=== PATIENT | female | born 2000 | race American Indian/Alaskan Native ===

== ENCOUNTER 2020-12-09 17:00 | Emergency (ER) | payer OTHER ==
[2020-12-09 18:09] VITALS: BP 119/64
[2020-12-09] MEDS ORDERED: ACETAMINOPHEN 500 MG TAB PO ONE (19:49)
[2020-12-09] MEDS ORDERED: IBUPROFEN 600 MG TAB PO ONE (19:49)
[2020-12-09] MEDS ORDERED: diazePAM 5 MG TAB PO ONE (19:49)
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
== END 2020-12-09 23:15 | disposition home or self-care (01) ==
LOC: ED 17:00
DX: S73.101A Unspecified sprain of right hip, initial encounter (principal); S63.502A Unspecified sprain of left wrist, initial encounter; S66.912A Strain of unspecified muscle, fascia and tendon at wrist and hand level, left hand, initial encounter; S70.01XA Contusion of right hip, initial encounter; J45.909 Unspecified asthma, uncomplicated; F17.200 Nicotine dependence, unspecified, uncomplicated; Z79.899 Other long term (current) drug therapy; V49.49XA Driver injured in collision with other motor vehicles in traffic accident, initial encounter; Y92.410 Unspecified street and highway as the place of occurrence of the external cause; Y93.89 Activity, other specified; Y99.8 Other external cause status